=== PATIENT | female | born 1960 | race Caucasian/White ===

== ENCOUNTER 2018-11-05 17:38 | Emergency (ER) | payer SELFPAY ==
[~2018-11-05] VITALS: Ht 175.3 cm; Wt 136.1 kg
[2018-11-05] MEDS ORDERED: Norco 5-325 Ta1 EACH PO (18:55)
[2018-11-05] MEDS ORDERED: IBUP600 PO (18:55)
== END 2018-11-05 19:08 | disposition home or self-care (01) ==
LOC: ER 17:38
DX: S29.012A Strain of muscle and tendon of back wall of thorax, initial encounter (principal); S20.211A Contusion of right front wall of thorax, initial encounter; E11.9 Type 2 diabetes mellitus without complications; F41.9 Anxiety disorder, unspecified; W18.30XA Fall on same level, unspecified, initial encounter
CPT/HCPCS: 71101; 72070; 96374; 96375; 99284-25; J2405; J3010